=== PATIENT | female | born 1965 | race Caucasian/White ===

== ENCOUNTER 2021-10-25 10:21 | Emergency (ER) | payer BC | END 2021-10-29 20:59 | disposition home or self-care (01) | LOC: LB.ED 10:21 | DX: Z53.21 Procedure and treatment not carried out due to patient leaving prior to being seen by health care provider (principal) ==

== ENCOUNTER 2023-07-18 08:35 | Day surgery (SDC) | payer BC ==
[~2023-07-18 08:35] MED LIST: Metoclopramide 10 MG/2 ML SDV IV PRN; Sodium Chloride 0.9% 1,000 ML IV SCH
[2023-07-18 10:32] VITALS: BP 111/71; PULSE 51
== END 2023-07-18 11:03 | disposition home or self-care (01) ==
LOC: LB.SDS 08:35
PROVIDERS: ATTEND Surgery
DX: Z12.11 Encounter for screening for malignant neoplasm of colon (principal); I10 Essential (primary) hypertension; K57.30 Diverticulosis of large intestine without perforation or abscess without bleeding
CPT/HCPCS: J2704; J7030

== ENCOUNTER 2024-03-05 09:45 | Emergency (ER) | payer BC ==
[2024-03-05 10:09] LABS: HEMATOCRIT 45.4 % (37.0-47.0); HEMOGLOBIN 15.2 g/dL (11.5-16.5); MEAN CORPUSCULAR HEMOGLOBIN 31.4 pg (27.0-32.0); MEAN CORPUSCULAR HGB CONC 33.5 g/dL (31.0-35.0); MEAN PLATELET VOLUME 9.6 fL (6.0-10.0); RED BLOOD CELL COUNT 4.84 M/uL (3.80-5.80)
[2024-03-05 10:19] LABS: ANION GAP 9.8 mmol/L (5.0-15.0); BUN/CREATININE RATIO 17.3 (6-25); CALCIUM 9.3 mg/dL (8.5-10.1); CARBON DIOXIDE,CO2 32.4 mmol/L (21.0-32.0); CREATININE 0.75 mg/dL (0.55-1.02); EST CRCL DRUG DOSING (CG) 75.61 mL/min; POTASSIUM,K 4.2 mmol/L (3.5-5.1)
[2024-03-05] MEDS: Lidocaine 1% 5 ML VIAL INJECT ONE (11:05)
[2024-03-05] MEDS: cefTRIAXone 1 GM Vial IM ONE (11:05)
[2024-03-05] MEDS: cefTRIAXone 1 GM Vial ONE (11:10)
[2024-03-05 13:12] VITALS: BP 143/87; PULSE 70
== END 2024-03-05 11:07 | disposition home or self-care (01) ==
LOC: LB.ED 09:45
DX: L03.116 Cellulitis of left lower limb (principal); I10 Essential (primary) hypertension; E03.9 Hypothyroidism, unspecified; Z90.49 Acquired absence of other specified parts of digestive tract; Z90.710 Acquired absence of both cervix and uterus; Z87.891 Personal history of nicotine dependence; Z79.899 Other long term (current) drug therapy; Z88.8 Allergy status to other drugs, medicaments and biological substances; Z88.5 Allergy status to narcotic agent
CPT/HCPCS: 36415; 80048; 85027; 85379; 96372; 99283; J0696

== ENCOUNTER 2025-07-20 12:20 | Emergency (ER) | payer BC ==
[2025-07-20 12:26] VITALS: BP 139/90; PULSE 785
[2025-07-20 13:02] LABS: BASOPHILS ABSOLUTE AUTO 0.03 K/uL (0.02-0.10); BASOPHILS PERCENT AUTO 0.4 % (0.0-0.5); EOSINOPHILS ABSOLUTE AUTO 0.22 K/uL (0.04-0.40); EOSINOPHILS PERCENT AUTO 2.7 % (1.0-5.0); LYMPHOCYTES ABSOLUTE AUTO 2.42 K/uL (1.50-4.00); LYMPHOCYTES PERCENT AUTO 29.9 % (20.0-40.0); MEAN PLATELET VOLUME 9.7 fL (6.0-10.0); MONOCYTES ABSOLUTE AUTO 0.99 K/uL (0.20-0.80); MONOCYTES PERCENT AUTO 12.2 % (3.0-10.0); NEUTROPHILS ABSOLUTE AUTO 4.44 K/uL (2.00-7.50); NEUTROPHILS PERCENT AUTO 54.8 % (45.0-70.0); PLATELET COUNT,PLT 286 K/uL (150-500); RED BLOOD CELL COUNT 4.32 M/uL (3.80-5.80); RED CELL DISTRIBUTION WIDTH 13.4 % (11.0-16.0); WHITE BLOOD CELL COUNT,WBC 8.1 K/uL (4.0-11.0)
[2025-07-20 13:22] LABS: A/G RATIO 1.0 (0.8-2.0); ALANINE AMINOTRANSFERASE,ALT 24.0 U/L (12-78); ASPARTATE AMNIOTRANSFERASE,AST 17.0 U/L (15-37); BILIRUBIN TOTAL 1.0 mg/dL (0.0-1.0); BLOOD UREA NITROGEN,BUN 9.0 mg/dL (8-26); CARBON DIOXIDE,CO2 28.5 mmol/L (21.0-32.0); CHLORIDE,CL 102.0 mmol/L (98-107); CREATININE 0.65 mg/dL (0.55-1.02); EST CRCL DRUG DOSING (CG) 86.16 mL/min; ESTIMATED GFR 101.0 mL/min (>60); GLUCOSE RANDOM 95.0 mg/dL (74-100); POTASSIUM,K 4.0 mmol/L (3.5-5.1); PROTEIN TOTAL,TP 7.6 g/dL (6.4-8.2); SODIUM,NA 141.0 mmol/L (136-145)
== END 2025-07-20 13:40 | disposition home or self-care (01) ==
LOC: LB.ED 12:20
DX: R10.A1 Flank pain, right side (principal); I10 Essential (primary) hypertension; E03.9 Hypothyroidism, unspecified; F17.200 Nicotine dependence, unspecified, uncomplicated; Z90.49 Acquired absence of other specified parts of digestive tract; Z90.710 Acquired absence of both cervix and uterus; Z88.5 Allergy status to narcotic agent; Z88.6 Allergy status to analgesic agent; Z79.890 Hormone replacement therapy; Z79.899 Other long term (current) drug therapy
CPT/HCPCS: 36415; 74176; 80053; 85025; 99284